=== PATIENT | female | born 1965 | race African-American/Black ===

== ENCOUNTER 2021-08-03 13:06 | Emergency (ER) | payer SELFPAY ==
[2021-08-03 13:39] VITALS: BP 128/82; PULSE 73; TEMP 98.7; BMI 32.3
== END 2021-08-03 14:37 | disposition home or self-care (01) ==
LOC: JCOVINFU 13:06 → JER 13:06 → JCOVINFU 14:37
DX: U07.1 COVID-19 (principal)
CPT/HCPCS: 99283-25